=== PATIENT | male | born 1955 | race Caucasian/White ===

== ENCOUNTER 2019-09-20 00:16 | Emergency (ER) | payer MEDICARE, MEDICAID ==
[~2019-09-20] VITALS: Ht 175.3 cm; Wt 89.0 kg
[~2019-09-20 00:16] MED LIST: AMLO5TAB4 PO; LISI2.5T PO; METO25TA35 PO
[2019-09-20 02:34] LABS: BASOPHILS # (AUTO) 0.04 x10^3/uL (0-0.1); BASOPHILS % (AUTO) 0 % (0-1); EOSINOPHILS % (AUTO) 0 % (1-7); LYMPHOCYTES # (AUTO) 0.88 x10^3/uL (1-3.4); LYMPHOCYTES % (AUTO) 7 % (22-44); MD NO; MEAN CORPUSCULAR HEMOGLOBIN 32.1 pg (27.5-34.5); MEAN CORPUSCULAR HGB CONC 34.1 g/dL (33.2-36.2); MEAN PLATELET VOLUME 7.1 fL (7.4-10.4); MONOCYTES # (AUTO) 0.69 x10^3/uL (0.2-0.8); MONOCYTES % (AUTO) 6 % (2-9); NEUTROPHILS # (AUTO) 10.54 x10^3/uL (1.8-6.8); NEUTROPHILS % (AUTO) 87 % (42-75); PLATELET COUNT 345 x10^3/uL (130-400); RED BLOOD COUNT 4.44 x10^6/uL (4.38-5.82); RED CELL DISTRIBUTION WIDTH 13.1 % (9.4-14.8)
[2019-09-20 02:39] LABS: ALANINE AMINOTRANSFERASE 29 U/L (12-78); ALBUMIN 3.5 g/dL (3.4-5.0); ANION GAP 8 mmol/L (5-15); CALCIUM 8.8 mg/dL (8.5-10.1); CHLORIDE 99 mmol/L (98-107); CREATININE 0.96 mg/dL (0.7-1.3)
[2019-09-20 02:42] LABS: ALKALINE PHOSPHATASE 72 U/L (45-117); BILIRUBIN,TOTAL 1.3 mg/dL (0.2-1.0); TOTAL PROTEIN 7.5 g/dL (6.4-8.2)
--- NOTE | 2019-09-20 02:48 | NUR ---
XRAYS COMPLETED AT BEDSIDE. PATIENT TOLERATED WELL.
[2019-09-20 03:25] VITALS: BP 143/71
== END 2019-09-20 03:28 | disposition home or self-care (01) ==
LOC: ED 00:46
DX: S42.412A Displaced simple supracondylar fracture without intercondylar fracture of left humerus, initial encounter for closed fracture (principal); M54.2 Cervicalgia; R94.31 Abnormal electrocardiogram [ECG] [EKG]; I10 Essential (primary) hypertension; G89.29 Other chronic pain; Z86.73 Personal history of transient ischemic attack (TIA), and cerebral infarction without residual deficits; Y04.0XXA Assault by unarmed brawl or fight, initial encounter; Y93.89 Activity, other specified; Y92.89 Other specified places as the place of occurrence of the external cause; Y99.8 Other external cause status
CPT/HCPCS: 29105; 36415; 71045; 72050; 80053; 85025; 93005; 99285

== ENCOUNTER 2019-09-29 09:55 | Emergency (ER) | payer MEDICARE, MEDICAID ==
[~2019-09-29] VITALS: Ht 170.2 cm; Wt 80.8 kg
[2019-09-29 10:02] VITALS: BP 149/80
== END 2019-09-29 10:43 | disposition home or self-care (01) ==
LOC: ED 10:39
DX: S42.402A Unspecified fracture of lower end of left humerus, initial encounter for closed fracture (principal); L03.114 Cellulitis of left upper limb; I10 Essential (primary) hypertension; Z86.73 Personal history of transient ischemic attack (TIA), and cerebral infarction without residual deficits; X58.XXXA Exposure to other specified factors, initial encounter; Y93.89 Activity, other specified; Y92.89 Other specified places as the place of occurrence of the external cause; Y99.8 Other external cause status
CPT/HCPCS: 99281

== ENCOUNTER 2019-10-07 11:29 | Emergency (ER) | payer MEDICARE, MEDICAID ==
[~2019-10-07] VITALS: Ht 175.3 cm; Wt 80.2 kg
[2019-10-07 11:45] VITALS: BP 119/82
--- NOTE | 2019-10-07 12:06 | NUR ---
THIS IS A 63 YO M W/ C/O LT ELBOW PAIN POST FX AND MULTIPLE DRAINING LESIONS ON BILAT ARMS AND LEGS. PT REPORTS HE WAS SUPPOSED TO FOLLOW UP W/ ORTHO YESTERAY BUT WAS UNABLE TO MAKE APT DUE TO TRANSPORTATION ISSUES. PT RESTING ON [employer] W/ CALL LIGHT IN REACH. RESP EVEN AND UNLABORED, RONDAN. AWAITING ED EVAL.
--- NOTE | 2019-10-07 12:52 | NUR ---
Patient given discharge instructions and they have confirmed that they understand the instructions. Patient ambulatory with steady gait.
== END 2019-10-07 12:53 | disposition home or self-care (01) ==
LOC: ED 12:25
DX: S42.412D Displaced simple supracondylar fracture without intercondylar fracture of left humerus, subsequent encounter for fracture with routine healing (principal); Z48.00 Encounter for change or removal of nonsurgical wound dressing; I10 Essential (primary) hypertension; X58.XXXD Exposure to other specified factors, subsequent encounter
CPT/HCPCS: 99281